=== PATIENT | female | born 1965 | race Caucasian/White ===

== ENCOUNTER → 2016-07-15 | Outpatient (CLI) | payer BC ==
[2016-07-15 10:24] LABS: HEMOGLOBIN 13.3 gm/dl (12.3-15.3); RED BLOOD COUNT 4.59 M/UL (4.00-5.10); WHITE BLOOD COUNT 7.8 K/UL (4.5-11.0)
[2016-07-15 10:45] LABS: BUN/CREATININE RATIO 27 (0-10)
== END ==
LOC: LAB 09:30
PROVIDERS: Internal Medicine
DX: E11.65 Type 2 diabetes mellitus with hyperglycemia (principal); E55.9 Vitamin D deficiency, unspecified; E78.5 Hyperlipidemia, unspecified; I10 Essential (primary) hypertension
CPT/HCPCS: 36415; 80048; 80061; 80076; 82607; 83036; 84443; 85025

== ENCOUNTER 2016-08-18 16:33 | Emergency (ER) | payer OTHER | END 2016-08-18 17:35 | disposition home or self-care (01) | LOC: ER1 16:33 | DX: S80.01XA Contusion of right knee, initial encounter (principal); E11.9 Type 2 diabetes mellitus without complications; I10 Essential (primary) hypertension; E78.5 Hyperlipidemia, unspecified; Z79.84 Long term (current) use of oral hypoglycemic drugs; Z79.899 Other long term (current) drug therapy; W19.XXXA Unspecified fall, initial encounter | CPT/HCPCS: 73564; 99283 ==

== ENCOUNTER → 2020-04-30 | Outpatient (CLI) | payer BC ==
[~2020-04-30] MED LIST: CALCIUM + VITA1 EACH PO; CLOPIDOGREL75 MG PO; COLACE100 MG PO; EFFEXOR XR 75 M75 MG PO; GLUCOPHAGE1000 MG PO; IBU800 MG PO; LIPITOR20 MG PO; METOPROLOL SUC200 MG PO; NORCO 7.5-3251 EACH PO; OZEMPIC INJ; PROTONIX 40 MG40 M1 PO; TORADOL 10 MG T10 MG PO; VITAMIN D21250 MCG PO
[2020-04-30 09:53] LABS: HEMOGLOBIN 12.8 gm/dl (12.3-15.3); RED BLOOD COUNT 4.2 M/UL (4.00-5.10); WHITE BLOOD COUNT 8.2 K/UL (4.5-11.0)
[2020-04-30 10:21] LABS: BUN/CREATININE RATIO 20 (0-10)
== END ==
LOC: LAB 09:30
PROVIDERS: Internal Medicine
DX: E11.65 Type 2 diabetes mellitus with hyperglycemia (principal)
CPT/HCPCS: 36415; 80048; 80061; 80076; 83036; 84443; 85025

== ENCOUNTER 2020-07-12 18:26 | Emergency (ER) | payer BC ==
[~2020-07-12 18:26] MED LIST changes: -TORADOL 10 MG T10 MG PO
[2020-07-12] MEDS ORDERED: TORADOL 10 MG T10 MG PO (19:48)
== END 2020-07-12 20:03 | disposition home or self-care (01) ==
LOC: ER1 18:26
DX: S93.401A Sprain of unspecified ligament of right ankle, initial encounter (principal); S93.602A Unspecified sprain of left foot, initial encounter; Z86.16 Personal history of COVID-19; E11.9 Type 2 diabetes mellitus without complications; I51.9 Heart disease, unspecified; W19.XXXA Unspecified fall, initial encounter; Y92.830 Public park as the place of occurrence of the external cause
CPT/HCPCS: 73610; 73630; 96372; 99283; J1885

== ENCOUNTER → 2020-10-24 | Outpatient (CLI) | payer BC ==
[~2020-10-24] MED LIST changes: +TORADOL 10 MG T10 MG PO
[2020-10-24 11:28] LABS: HEMOGLOBIN 13.2 gm/dl (12.3-15.3); RED BLOOD COUNT 4.33 M/UL (4.00-5.10); WHITE BLOOD COUNT 6.9 K/UL (4.5-11.0)
[2020-10-24 11:55] LABS: BUN/CREATININE RATIO 19 (0-10)
== END ==
LOC: LAB 09:12
PROVIDERS: Internal Medicine
DX: E11.65 Type 2 diabetes mellitus with hyperglycemia (principal); E55.9 Vitamin D deficiency, unspecified
CPT/HCPCS: 36415; 80048; 80061; 80076; 83036; 84443; 85025

== ENCOUNTER → 2021-05-04 | Outpatient (CLI) | payer BC ==
[2021-05-04 09:37] LABS: HEMOGLOBIN 13.3 gm/dl (12.3-15.3); RED BLOOD COUNT 4.44 M/UL (4.00-5.10); WHITE BLOOD COUNT 8.1 K/UL (4.5-11.0)
[2021-05-04 10:03] LABS: BUN/CREATININE RATIO 19 (0-10)
== END ==
LOC: LAB 08:02
PROVIDERS: Internal Medicine
DX: E11.65 Type 2 diabetes mellitus with hyperglycemia (principal)
CPT/HCPCS: 36415; 80048; 80061; 80076; 83036; 84443; 85025

== ENCOUNTER → 2021-09-18 | Outpatient (CLI) | payer BC | LOC: LAB 10:14 | DX: U07.1 COVID-19 (principal) | CPT/HCPCS: U0002 ==

== ENCOUNTER → 2021-11-26 | Outpatient (CLI) | payer BC ==
[2021-11-26 09:31] LABS: HEMOGLOBIN 13.4 gm/dl (12.3-15.3); RED BLOOD COUNT 4.41 M/UL (4.00-5.10); WHITE BLOOD COUNT 8.4 K/UL (4.5-11.0)
[2021-11-26 10:07] LABS: BUN/CREATININE RATIO 26 (0-10)
== END ==
LOC: LAB 09:11
PROVIDERS: Internal Medicine
DX: I10 Essential (primary) hypertension (principal); E78.00 Pure hypercholesterolemia, unspecified; E11.9 Type 2 diabetes mellitus without complications
CPT/HCPCS: 36415; 80048; 80061; 80076; 83036; 84443; 85025